=== PATIENT | female | born 1945 | race Caucasian/White ===

== ENCOUNTER → 2017-06-28 | Outpatient (CLI) | payer OTHER ==
[~2017-06-28] MED LIST: ESTR2TAB PO; VENL75TA2 PO
== END ==
LOC: CPRE 11:40
PROVIDERS: ATTEND Orthopaedic Surgery Sports Medicine
DX: M17.12 Unilateral primary osteoarthritis, left knee (principal)

== ENCOUNTER 2017-07-12 06:54 | Inpatient (IN) | payer OTHER, MEDICARE ==
[~2017-07-12] VITALS: Ht 165.1 cm; Wt 75.4 kg
[2017-07-12] MEDS ORDERED: HYDR-3288 PO (07:11)
[2017-07-12] MEDS ORDERED: ASPI81CH6 CHEW (07:11)
[2017-07-12] MEDS ORDERED: ONDANSETRON HCL 4 MG/2 ML VIAL IVP PRN (07:15)
[2017-07-12] MEDS ORDERED: ACETAMINOPHEN/HYDROcodone 325 MG/7.5 MG TAB PO PRN (07:15)
[2017-07-12] MEDS ORDERED: ZOLPIDEM TARTRATE 5 MG TAB PO PRN (07:15)
[2017-07-12] MEDS ORDERED: BISACODYL 10 MG SUPP RECTAL PRN (07:15)
[2017-07-12] MEDS ORDERED: diphenhydrAMINE HCL 50 MG/ML VIAL IV PUSH PRN (07:15)
[2017-07-12] MEDS ORDERED: MORPHINE SULFATE 4 MG/ML INJ IV PUSH PRN (07:15)
[2017-07-12] MEDS ORDERED: POVIDONE IODINE 5% (ANTISEPSIS KIT) 4 APPLICATIONS EACH NARE PRN (08:00)
[2017-07-12] MEDS ORDERED: SODIUM CHLORID 0.9% 500 ML IV PRN (08:00)
[2017-07-12] MEDS ORDERED: LACTATED RINGER'S 1000 ML IV PRN (08:00)
[2017-07-12] MEDS ORDERED: CHLORHEXIDINE GLUCONATE 2 % 1 PACK (2 CLOTHS) TOPICAL PRN (08:00)
[2017-07-12] MEDS ORDERED: METOPROLOL TARTRATE 25 MG TAB PO PRN (08:00)
[2017-07-12] MEDS ORDERED: TRAM50TA PO (08:13)
[2017-07-12] MEDS ORDERED: CHLORHEXIDINE GLUCONATE 4% SOLN 120 ML BTL TOPICAL SCH (08:15)
[2017-07-12] MEDS ORDERED: VANCOMYCIN 1 GM/200 ML INJ 200 ML IV SCH (08:15)
[2017-07-12] MEDS ORDERED: POVIDONE IODINE 7.5% SCRUB 118 ML BOTTLE TOPICAL SCH (08:15)
[2017-07-12] MEDS ORDERED: ceFAZolin 2 GM PREMIX 50 ML IV SCH (08:15)
[2017-07-12 08:27] VITALS: PULSE 80
[2017-07-12] MEDS ORDERED: MIDAZOLAM HCL 2 MG/2 ML VIAL ONE (08:41)
[2017-07-12] MEDS ORDERED: BUPIVACAINE LIPOSOME PF 1.3% 20 ML VIAL ONE (08:42)
[2017-07-12] MEDS ORDERED: LIDOCAINE HCL 1% PF 5 ML AMPULE ONE (08:42)
[2017-07-12] MEDS ORDERED: SODIUM CHLORIDE 0.9% IV SCH (09:00)
[2017-07-12] MEDS ORDERED: TRANEXAMIC ACID IV SCH (09:00)
[2017-07-12] MEDS ORDERED: ROPIVACAINE PERI-ARTICULAR INJECTION. P-ARTICULR SCH ×5 (09:00)
[2017-07-12] MEDS: ESTRADIOL 1 MG TAB PO SCH (09:00)
[2017-07-12] MEDS ORDERED: DEXAMETHASONE SOD PHOS 20 MG/5 ML VIAL IV SCH (09:00)
[2017-07-12] MEDS ORDERED: TRANEXAMIC PERI-ARTICULAR 3,000 MG/NS 100 ML P-ARTICULR SCH ×2 (09:00)
[2017-07-12] MEDS: VENLAFAXINE HCL XR 75 MG CAP PO SCH (09:00)
[2017-07-12] MEDS ORDERED: GENTAMICIN SULFATE 80 MG/2 ML VIAL ONE (09:10)
[2017-07-12] MEDS ORDERED: STERILE WATER FOR INJECTION 20 ML VIAL ONE (11:09)
[2017-07-12] MEDS ORDERED: Post-op Orders (for Pharmacy) XX ONE (11:42)
[2017-07-12] MEDS ORDERED: *ONDANSETRON 4 MG VIAL PERIprocedural Use ONLY ONE (11:48)
[2017-07-12] MEDS ORDERED: *MEPERIDINE 25 MG INJ VIAL PERIprocedural Use ONLY ONE (11:53)
[2017-07-12] MEDS ORDERED: PROPOFOL 200 MG/20 ML AMP IV ONE (12:00)
[2017-07-12] MEDS ORDERED: LACTATED RINGER'S 1000 ML INJ 1,000 ML IV ONE (12:00)
[2017-07-12] MEDS ORDERED: GLYCOPYRROLATE 1 MG/5 ML SYRINGE IV PUSH ONE (12:00)
[2017-07-12] MEDS ORDERED: LABETALOL HCL 100 MG/20 ML VIAL IV ONE (12:00)
[2017-07-12] MEDS ORDERED: ONDANSETRON HCL 4 MG/2 ML VIAL IV ONE (12:00)
[2017-07-12] MEDS ORDERED: LIDOCAINE HCL 1% PF 5 ML SYRINGE OTHER ONE (12:00)
[2017-07-12] MEDS ORDERED: NEOSTIGMINE 5 MG/5 ML SYRINGE IV PUSH ONE (12:00)
[2017-07-12] MEDS ORDERED: ROCURONIUM INJ 50 MG/5 ML SYRINGE IV PUSH ONE (12:00)
[2017-07-12] MEDS ORDERED: *morphine SULFATE 4 MG/ML PERIprocedure ONLY ONE ×2 (12:19→13:39)
--- NOTE | 2017-07-12 12:33 | RADRPT ---
EXAM DATE/TIME: 07/12/2017 12:07 [place] COMPARISON: No previous studies available for comparison. INDICATIONS : Post op left knee. MEDICAL HISTORY : None. SURGICAL HISTORY : left knee replaced ENCOUNTER: Initial ACUITY: 1 day PAIN SCORE: 6/10 LOCATION: Left knee FINDINGS: 2 views of the knee show a total knee prosthesis in good position. No fracture or dislocation is obse rved. Air and fluid is noted within the joint. Soft tissue swelling is noted. CONCLUSION: Totally prosthesis in good position. Jonnathan Conklin Jr., MD on July 12, 2017 at 12:31 Board Certified Radiologist. This report was verified electronically.
[2017-07-12] MEDS ORDERED: *morphine SULFATE 10 MG/ML PERIprocedure ONLY ONE (12:38)
[2017-07-12] MEDS ORDERED: DO NOT ADM ANY ANTICOAGULANT DRUGS PRN (12:45)
--- NOTE | 2017-07-12 12:54 | MP ---
cc: Manuel Gamboa MD DATE OF OPERATION: 07/12/2017 PREOPERATIVE DIAGNOSIS: Left knee osteoarthritis. POSTOPERATIVE DIAGNOSIS: Left knee osteoarthritis. PROCEDURE: Left total knee arthroplasty. SURGEON: Manuel Gamboa MD EMAIL DEVELOPER: SATURNINO Lara ANESTHESIA: General with a femoral nerve adductor canal block. ESTIMATED BLOOD LOSS: 100 mL. COMPLICATIONS: None. TOURNIQUET TIME: 22 minutes at 250 mmHg. IMPLANTS USED: DePuy Attune size 5 posterior stabilized femoral component, size 5 rotating platform tibial baseplate, size 5 mm polyethylene tibia insert, size 35 patella. JUSTIFICATION: This patient is a 72-year-old female with a history of severe end-stage osteoarthritis involving the left knee. She has severe disabling pain with standing, walking, ambulation, weight-bearing activities and severe pain at rest. She has failed greater than three months of nonoperative conservative treatment to include medication therapy, injections, ambulatory assistive aids, home exercise program, activity modification, and weight loss. Extensive x-rays of the left knee reveal severe end-stage osteoarthritis with joint space narrowing, subchondral sclerosis, subchondral cyst, osteophyte formation with deformity and subluxation. The patient was counseled as to the risks, benefits and alternatives to a total knee arthroplasty. The risks were discussed which include, not limited to anesthesia, bleeding, infection, damage to nerves, blood vessels, pain, stiffness, failure of the hardware, damage to nerves and blood vessels and even . The patient's pain is severe and she favored the benefits over the risks and did wish to proceed with surgery. PROCEDURE IN DETAIL: Written consent was obtained. The patient was identified by name, taken to the operating room and placed supine on the operating room table. General endotracheal anesthesia was administered as well as 2 grams of IV Ancef and 1 gram of IV vancomycin. She received an ultrasound guided femoral nerve adductor canal block by anesthesia. A well-padded tourniquet was placed on the left thigh and the left lower extremity was then prepped and draped using isopropyl alcohol, Hibiclens solution and ChloraPrep solution. After a time-out was performed, an Esmarch bandage was used to exsanguinate the left lower extremity. The tourniquet was inflated to 250 mmHg. A longitudinal incision was made over the anterior aspect of the left knee. A medial parapatellar arthrotomy was performed. The patella was everted. A patella resection guide was used to resect 9 mm of patella. At this time, a 35 mm guide was placed. Three drill holes were placed, a 35 mm trial fit well. Attention was turned to the femur where an intramedullary guide was placed and the distal femoral guide was set to remove 10 mm of distal femur 5 degrees of the anatomic valgus axis alignment. An oscillating saw was used to perform the distal femoral cut. Attention was turned to the tibia where an extramedullary tibial guide was set to remove 5 mm off the lowest portion of the medial tibial plateau. Tibial guide was pinned in place and the tibia cut was performed. A 5 mm spacer block showed full extension. Attention was turned back to the femur where the AP sizer block measured at size 5. The anterior reference 3 degree external rotation guide was used to pin a size [address] The anterior, posterior and chamfer cuts were performed. A size 5 PCL box cut pinned in place and the PCL was box cut with an oscillating saw. The medial and lateral meniscus remnants were removed, as well as bone and soft tissue debris from the posterior portion of the knee. A size 5 tibia base was pinned in place and the tibia was drilled and punched. Trial component were removed and final components cemented in place. With the current components, the leg could achieve full extension to 0 degrees, flexion to 140 with no evidence of tibial lift off. Varus/valgus balance appeared appropriate and symmetric and the patella was noted to track centrally. With the tourniquet deflated, Bovie cautery was used for hemostasis. The surgical wound was thoroughly irrigated with sterile saline pulse lavage antibiotic impregnated solution. The arthrotomy incision was closed with #1 Vicryl sutures, subcutaneous layer 2-0 Vicryl suture and the skin was closed with Dermabond. Sterile dressings were applied. The patient tolerated the procedure well with no intraoperative complication noted. Cricket Scales, Physical Concrete Float Maker Certified, was present during the entire procedure to include patient positioning, and the procedure itself. The medical necessity of a physician dental assistant was indicated in this case due to the complexity of the procedure. He assisted with appropriate manipulation of the leg and also retraction of muscle, tendon, bone and neurovascular structures. He assisted with preparation of bone and implantation of the internal prosthetic replacement. MD AMADO Pang/GERSON/uzma , 11:29 AM , 12:00 PM
[2017-07-12] MEDS: SODIUM CHLOR 0.9% 1000 ML INJ 1,000 ML IV SCH ×2 (13:18→17:09)
--- NOTE | 2017-07-12 13:49 | HHI.DCPOC ---
Discharge Care Plan Diagnosis: (1) Primary localized osteoarthrosis, lower leg Your Health Problems Are: Difficulty with ADL Goals to Promote Your Health * To prevent worsening of your condition and complications * To maintain your health at the optimal level Directions to Meet Your Goals Take your medications as prescribed Follow your dietary instruction Follow activity as directed Keep your appointments as scheduled Take your immunizations and boosters as scheduled If your symptoms worsen call your PCP, if no PCP go to Urgent Care Center or Emergency Room Smoking is Dangerous to Your Health. Avoid second hand smoke Call the 24-hour hour crisis hotline for domestic abuse at Manuel Scales Jul 12, 2017 13:49
--- NOTE | 2017-07-12 13:50 | HHI.FF ---
Face to Face Verification Diagnosis: (1) Primary localized osteoarthrosis, lower leg Physical Therapy Gait training, Safety evaluation, Transfer training, bed to chair Knee: Total knee, Protocol: Left Left LE Weight Bearing: WB as tolerated Nursing RN: 3 days/week x 2 weeks Nursing: Dressing changes Dressing Changes: Daily dressing change I have seen patient Ana Woodard on 07/12/17. My clinical findings support the need for the requested home health care services because: Limited ability to care for self High risk of falls I certify that my clinical findings support that this patient is homebound because: Post-op weakness Unsteady gait/balance Manuel Scales Jul 12, 2017 13:50
[2017-07-12] MEDS ORDERED: HYDROmorphone HCL PF 2 MG/ML VIAL ONE (14:33)
[2017-07-12] MEDS: ACETAMINOPHEN/HYDROcodone 325 MG/7.5 MG TAB PO PRN ×2 (18:35→23:59)
[2017-07-12 19:20] VITALS: BP 126/60; PULSE 99; RESP 18; TEMP 95.3; O2SAT 93
--- NOTE | 2017-07-12 20:40 | PD.CONS ---
HPI Service [facility] Hospitalists Consult Requested By Orthopedic surgery. Reason for Consult Medical management. Primary Care Physician Franchesca Sousa MD Diagnoses: History of Present Illness Ms. Woodard is a pleasant 72 year old female with history of osteoarthritis who underwent left total knee arthroplasty today. Hospitalist service was consulted for medical management. Patient was seen in PACU. At the time of this interview , patient is working with PT. She has no acute concerns. No chest pain, SOB, fever, chills. Review of Systems Except as stated in HPI: all other systems reviewed are Neg Past Family Social History Allergies: Coded Allergies: No Known Allergies (Unverified , 07/12/17) Past Medical History Depression Osteoarthritis. Past Surgical History Cholecystectomy Reported Medications Venlafaxine 75mg Qday Estradiol 2mg Qday Tramadol 50mg Q6hrs PRN. Family History Father - heart disease. Mother - circulation problems. Social History Used to smoke. However, she does not smoke anymore. Denies using alcohol or illicit drugs. Physical Exam Vital Signs Vital Signs Date Time Temp Pulse Resp B/P (MAP) Pulse Ox O2 Delivery O2 Flow Rate FiO2 07/12/17 19:20 95.3 99 18 126/60 (82) 93 07/12/17 17:00 97.6 100 16 117/57 (77) 100 Nasal Cannula 2 07/12/17 16:00 92 14 139/92 (108) 100 Nasal Cannula 2 07/12/17 15:00 99 15 132/59 (83) 100 Nasal Cannula 2 07/12/17 14:00 100 14 133/60 (84) 100 Nasal Cannula 2 07/12/17 13:30 92 13 148/65 (92) 100 Nasal Cannula 2 07/12/17 13:00 91 12 135/57 (83) 99 Nasal Cannula 2 07/12/17 12:45 86 12 124/58 (80) 95 Nasal Cannula 2 07/12/17 12:30 85 12 105/52 (69) 95 Nasal Cannula 2 07/12/17 12:15 83 14 139/63 (88) 95 Nasal Cannula 2 07/12/17 12:00 81 15 138/65 (89) 97 Nasal Cannula 2 07/12/17 11:45 78 19 131/60 (83) 95 Nasal Cannula 2 07/12/17 11:42 97.6 72 20 129/62 (84) 96 Nasal Cannula 2 07/12/17 09:02 81 16 99 07/12/17 08:31 97.1 94 16 146/68 (94) 99 07/12/17 08:31 100 Nasal Cannula 2 07/12/17 08:27 80 Physical Exam GENERAL: This is a well-nourished, well-developed patient, in no apparent distress. SKIN: No rashes, ecchymoses or lesions. Warm and dry. HEAD: Atraumatic. Normocephalic. No temporal or scalp tenderness. EYES: Pupils equal round and reactive. No injection or drainage. ENT: Nose without bleeding, purulent drainage or septal hematoma. Airway patent. NECK: Trachea midline. No lymphadenopathy. Supple, nontender, no meningeal signs. CARDIOVASCULAR: Regular rhythm, tachycardic without murmurs, gallops, or rubs. No JVD. RESPIRATORY: Clear to auscultation. Breath sounds equal bilaterally. No wheezes , rales, or rhonchi. GASTROINTESTINAL: Abdomen soft, non-tender, nondistended. No guarding. MUSCULOSKELETAL: Extremities without clubbing, cyanosis, or edema. s/p left TKA NEUROLOGICAL: Awake and alert. Cranial nerves II through XII intact. No focal neurological deficits. Normal speech. Imaging Last Impressions Knee X-Ray 07/12/17 0709 Signed Impressions: Service Date/Time: Wednesday, July 12, 2017 12:07 - CONCLUSION: Totally prosthesis in good position. Jonnathan Conklin Jr., MD Assessment and Plan Problem List: (1) Primary localized osteoarthrosis, lower leg ICD Code: M17.10 - Unilateral primary osteoarthritis, unspecified knee Assessment and Plan Ms. Woodard is a pleasant 72 year old with a history of osteoarthritis who underwent left total knee arthroplasty on 07/12/2017. - Left knee osteoarthritis - s/p Left TKA - Continue [place] PRN for pain as well as Morphine IV - Bowel regimen - Lovenox 40mg Qday starting 07/13/2017. - Tachycardia - mild. Likely due to pain. No need to treat at this point. - Depression - Continue Venlafaxine 75mg Qday. Full code. Lovenox starting 07/13/2017. Thank you for the consult. We will follow this patient with you. Mike Call DO Jul 12, 2017 20:40
[2017-07-12 23:00] VITALS: BP 136/71; PULSE 98; RESP 18; TEMP 97.9; O2SAT 94
[2017-07-13] MEDS: SODIUM CHLOR 0.9% 1000 ML INJ 1,000 ML IV SCH (02:55)
[2017-07-13] MEDS: ACETAMINOPHEN/HYDROcodone 325 MG/7.5 MG TAB PO PRN ×3 (04:41→12:25)
[2017-07-13 05:55] VITALS: BP 114/65; PULSE 104; RESP 18; TEMP 98.4; O2SAT 97
[2017-07-13 07:30] VITALS: BP 115/61; PULSE 94; RESP 18; TEMP 97.5; O2SAT 97
--- NOTE | 2017-07-13 08:15 | PD.ORT.PN ---
Subjective Post Op Day #: 1 Subjective Remarks pain tolerable. Objective Vitals Vital Signs Date Time Temp Pulse Resp B/P (MAP) Pulse Ox O2 Delivery O2 Flow Rate FiO2 07/13/17 07:43 Room Air 07/13/17 07:30 97.5 94 18 115/61 (79) 97 07/13/17 05:55 98.4 104 18 114/65 (81) 97 07/12/17 23:00 97.9 98 18 136/71 (92) 94 07/12/17 19:20 95.3 99 18 126/60 (82) 93 07/12/17 17:00 97.6 100 16 117/57 (77) 100 Nasal Cannula 2 07/12/17 16:00 92 14 139/92 (108) 100 Nasal Cannula 2 07/12/17 15:00 99 15 132/59 (83) 100 Nasal Cannula 2 07/12/17 14:00 100 14 133/60 (84) 100 Nasal Cannula 2 07/12/17 13:30 92 13 148/65 (92) 100 Nasal Cannula 2 07/12/17 13:00 91 12 135/57 (83) 99 Nasal Cannula 2 07/12/17 12:45 86 12 124/58 (80) 95 Nasal Cannula 2 07/12/17 12:30 85 12 105/52 (69) 95 Nasal Cannula 2 07/12/17 12:15 83 14 139/63 (88) 95 Nasal Cannula 2 07/12/17 12:00 81 15 138/65 (89) 97 Nasal Cannula 2 07/12/17 11:45 78 19 131/60 (83) 95 Nasal Cannula 2 07/12/17 11:42 97.6 72 20 129/62 (84) 96 Nasal Cannula 2 07/12/17 09:02 81 16 99 07/12/17 08:31 97.1 94 16 146/68 (94) 99 07/12/17 08:31 100 Nasal Cannula 2 07/12/17 08:27 80 I/O 07/12/17 07/12/17 07/12/17 07/13/17 07/13/17 07/13/17 07:00 15:00 23:00 07:00 15:00 23:00 Intake Total 1290 ml 1002 ml 480 ml Output Total 250 ml 500 ml 1000 ml Balance 1040 ml 502 ml -520 ml Intake Oral 40 ml 560 ml 480 ml IV Total 1250 ml 442 ml Output Urine Total 150 ml 500 ml 1000 ml Estimated Blood Loss 100 ml # Bowel Movements 0 0 Objective Remarks in bed, nad dressing c/d/i neg homamaverick nvi Assessment & Plan Ortho Post Op Day #: 1 Problem List: Assessment and Plan s/p L TKA wbat ok to maintain dressing unless saturated lovenox, d/c on asa81 d/c planning home with [facility] and pt - cleared today if does well in PT rx in chart f/up dr. flower 2 weeks Manuel Scales Jul 13, 2017 08:15
[2017-07-13] MEDS: VENLAFAXINE HCL XR 75 MG CAP PO SCH (08:17)
[2017-07-13 08:33] LABS: HEMATOCRIT 30.8 % (35.0-46.0); HEMOGLOBIN 10.2 GM/DL (11.6-15.3); MEAN CELL VOLUME 87.6 FL (80.0-100.0); MEAN CORPUSCULAR HEMOGLOBIN 29.1 PG (27.0-34.0); MEAN CORPUSCULAR HGB CONC 33.2 % (32.0-36.0); MEAN PLATELET VOLUME 7.3 FL (7.0-11.0); PLATELET COUNT 291 TH/MM3 (150-450); RED BLOOD COUNT 3.51 MIL/MM3 (4.00-5.30); RED CELL DISTRIBUTION WIDTH 12.8 % (11.6-17.2); WHITE BLOOD COUNT 12.7 TH/MM3 (4.0-11.0)
[2017-07-13] MEDS: ESTRADIOL 1 MG TAB PO SCH (09:00)
[2017-07-13 09:08] LABS: BICARBONATE 25.1 MEQ/L (21.0-32.0); CALCIUM 7.8 MG/DL (8.5-10.1); CREATININE 0.67 MG/DL (0.50-1.00)
[2017-07-13] MEDS ORDERED: ENOXAPARIN SODIUM 40 MG/0.4 ML SYRINGE SQ SCH (11:00)
[2017-07-13 11:23] VITALS: BP 137/67; PULSE 83; RESP 18; TEMP 97.8; O2SAT 96
[2017-07-13] MEDS ORDERED: DOCUSATE SODIUM 100 MG CAP PO SCH (21:00)
[2017-07-13] MEDS ORDERED: MULTIVITAMINS/MINERALS THERAPEUTIC TAB PO SCH (21:00)
== END 2017-07-13 13:43 | disposition home health service (06) | DRG 470 ==
LOC: HSDC 06:54 → HSDI 07:10 → N06A 17:37
PROVIDERS: ADMIT Orthopaedic Surgery Sports Medicine; ATTEND Orthopaedic Surgery Sports Medicine
PROC: 3E0T3BZ Introduction of Anesthetic Agent into Peripheral Nerves and Plexi, Percutaneous Approach (ICD-10-PCS; 2017-07-12)
PROC: 0SRD0J9 Replacement of Left Knee Joint with Synthetic Substitute, Cemented, Open Approach (ICD-10-PCS; principal; 2017-07-12 09:41)
DX: M17.12 Unilateral primary osteoarthritis, left knee (principal); F32.9 Major depressive disorder, single episode, unspecified; K21.9 Gastro-esophageal reflux disease without esophagitis; Z87.891 Personal history of nicotine dependence
CPT/HCPCS: 73560; 80048; 85027; 86850; 86900; 86901; 94150; C1776; C9290; J0690; J0735; J1100; J1170; J1580; J1650; J1885; J2175; J2250; J2270; J2405; J2710; J2795; J3010; J3370; J7030; J7120; L1830

== ENCOUNTER 2018-01-17 05:30 | Inpatient (IN) ==
[2018-01-17] MEDS ORDERED: Chlorhexidine Gluconate 2% 1 Pack (2 Cloths) TOPICAL ONE (06:02)
[2018-01-17] MEDS ORDERED: Metoprolol Tartrate 25 MG Tablet PO ONE (06:02)
[2018-01-17] MEDS ORDERED: Dexamethasone Inj 20 MG/5 ML Vial IV.PUSH PRN (06:13)
[2018-01-17] MEDS ORDERED: Chlorhexidine 4% Topical 120 APPLIC/120 ML Bottle TOPICAL SCH (06:15)
[2018-01-17] MEDS ORDERED: Sodium Chlor 0.9% Inj 73.07 ML, Ropivacaine 0.5% PF Inj 24.63 ML, Ketorolac Inj 30 MG, ... P-ARTICULR SCH ×5 (06:15)
[2018-01-17] MEDS ORDERED: Bisacodyl 10 MG Supp RECTAL PRN (06:56)
[2018-01-17] MEDS ORDERED: Zolpidem Tartrate 5 MG Tablet PO PRN (06:56)
[2018-01-17] MEDS ORDERED: HYDROmorphone PF Inj 1 MG/ML Ampul IV.PUSH PRN (06:56)
[2018-01-17] MEDS ORDERED: Post-op Orders (for Pharmacy) OTHER STA (06:56)
[2018-01-17] MEDS ORDERED: Sodium Chlor 0.9% Inj 500 ML IV.SIG SCH (07:00)
[2018-01-17] MEDS ORDERED: TRANEXAMIC ACID IV.SIG SCH (07:00)
[2018-01-17] MEDS ORDERED: Vancomycin Inj 1,000 MG in Sodium Chlor 0.9% Inj 250 ML IV.SIG SCH (07:00)
[2018-01-17] MEDS ORDERED: ceFAZolin 2 GM Premix Inj 2 GM/50 ML PIGGYBACK IV.SIG SCH ×2 (07:00)
[2018-01-17] MEDS ORDERED: SODIUM CHLOR 0.9% IV.SIG SCH (07:00)
[2018-01-17] MEDS ORDERED: ceFAZolin 2 GM Premix Inj 2 GM/100 ML BAG IV.SIG SCH (07:00)
[2018-01-17] MEDS ORDERED: Famotidine PF Inj 20 MG/2 ML Vial ONE (07:33)
[2018-01-17] MEDS ORDERED: Senna/Docusate Sodium 8.6/50 MG Tablet PO SCH (09:00)
[2018-01-17] MEDS ORDERED: Venlafaxine XR 75 MG Capsule PO SCH (09:00)
[2018-01-17] MEDS ORDERED: Tolterodine Tartrate LA 2 MG Capsule PO SCH (09:00)
[2018-01-17] MEDS ORDERED: Estradiol 1 MG Tablet PO SCH (09:00)
[2018-01-17] MEDS ORDERED: Multivitamin/Minerals Therapeutic Tablet PO SCH (09:00)
--- NOTE | 2018-01-17 09:10 | P.CONIM ---
History of Present Illness Reason for Consult: post-opmedical management Primary Care Provider: Franchesca Crowder MD Family Provider: Franchesca Crowder MD Chief Complaint: I had a reaction to the antibiotic History of Present Illness: patient is a 72y/o female with history of osteoarthritis who was initially admitted for right knee arthroplasty. while she was receiving IV Vancomycin before the operation she started to have ' a funny feeling' in her lower chest/ upper abdomen with some facial redness. she says that she had some nausea. she didn't have any wheezing or sob. IV Vanco was discontinued.by the time of my evaluation she was resting comfortably with no distress and is almost back to normal.she denies any chest pain, dizziness, sob at this time. Review of Systems All other systems reviewed negative except as stated in HPI PMFSH - History History Provided By: Patient - Medical History Medical History: Medical History (Last Reviewed 01/17/18 @ 09:07 by Isi Martin MD) Anxiety Arthritis GERD (gastroesophageal reflux disease) History of anesthesia reaction History of hysterectomy Joint pain Urinary incontinence Vertigo Wears glasses Wears partial dentures - Surgical History Surgical History: Surgical History (Last Reviewed 01/17/18 @ 09:07 by Isi Martin MD) H/O rotator cuff surgery History of cataract extraction with lens replacement History of cholecystectomy History of left knee replacement History of tonsillectomy - Family History Family History: Family History (Last Updated 01/17/18 @ 09:07 by Isi Martin MD) Other Patient denies medical problems - Tobacco History Second Hand Smoke Exposure: No Smoking Status: Former smoker - Alcohol History How Often Do You Have a Drink Containing Alcohol: Monthly or less - Substance Use History Substance History: No History of Abuse - Travel History Recent Travel in the [place] Within the Last 8 Weeks: No Recent Travel Out of the Country Within the Last 8 Weeks: No Medications and Allergies Active Medications: Active Medications Hydrocodone Bitart/Acetaminophen ([place] 7.5/325) 1 tab PO Q4H PRN PRN Reason: PAIN LESS THAN 5 ON SCALE Hydrocodone Bitart/Acetaminophen (E[place] 7.5/325) 2 tab PO Q6H PRN PRN Reason: PAIN SCALE 5 TO 10 Al Hydroxide/Mg Hydroxide (Milk Of Magnesia Liq) 30 ml PO BID PRN PRN Reason: Mild Constipation Aspirin (Aspirin Chew) 81 mg PO BID [facility] Bisacodyl (Dulcolax Supp) 10 mg RECTAL DAILY PRN PRN Reason: SEVERE CONSITIPATION Chlorhexidine Gluconate (Hibiclens 4% Topical) 1 applicatio TOPICAL ONCE [facility] Stop: 01/21/18 06:14 Last Admin: 01/17/18 07:00 Dose: 1 applicatio Sodium Chloride 73.07 ml/Ropivacaine 24.63 ml/Ketorolac Tromethamine 30 mg/ Epinephrine HCl 0.5 mg/cloNIDine PF Inj 80 mcg 0 ml P-ARTICULR ONCE [facility] Stop: 01/17/18 15:00 Dexamethasone Sodium Phosphate (Decadron Inj) 10 mg IV.PUSH ENGINE INSTALLER PRN PRN Reason: PRE-OP IN OR HOLDING Stop: 01/17/18 22:00 Last Admin: 01/17/18 07:04 Dose: 10 mg Diphenhydramine HCl (Benadryl) 25 mg PO Q6H PRN PRN Reason: ITCHING Estradiol (Estrace) 0.5 mg PO DAILY [facility] Hydromorphone HCl (Dilaudid Pf Inj) 1 mg IV.PUSH Q3H PRN PRN Reason: BREAKTHROUGH PAIN Lactated Ringer's (Lr 1000 Ml Inj) 1,000 mls @ 30 mls/hr IV.SIG .Q24H [facility] Stop: 01/18/18 06:14 Last Admin: 01/17/18 07:00 Dose: 30 mls/hr Sodium Chloride (Ns Inj) 500 mls @ 30 mls/hr IV.SIG .Q10H [facility] Tranexamic Acid 1,130 mg/ (Sodium Chloride) 111.3 mls @ 200 mls/hr IV.SIG ONCE [facility] Stop: 01/17/18 15:00 Tranexamic Acid 3,000 mg/ (Sodium Chloride) 130 mls @ 200 mls/hr P-ARTICULR ONCE [facility] Stop: 01/17/18 16:00 Vancomycin HCl 1,000 mg/ (Sodium Chloride) 250 mls @ 250 mls/hr IV.SIG ENGINE INSTALLER [facility] Stop: 01/20/18 06:15 Last Admin: 01/17/18 07:21 Dose: 250 mls/hr Cefazolin Sodium/Dextrose (Ancef 2 Gm Premix Inj) 2 gm in 50 mls @ 100 mls/hr IV.SIG Q6H [facility] Stop: 01/17/18 19:29 Lactated Ringer's (Lr 1000 Ml Inj) 1,000 mls @ 80 mls/hr IV.CONT .[id number] [facility] Cefazolin/Sodium Chloride (Ancef 2 Gm Premix Inj) 2 gm in 100 mls @ 200 mls/hr IV.SIG ENGINE INSTALLER [facility] Stop: 01/17/18 21:00 Lactulose (Lactulose Liq) 30 ml PO DAILY PRN PRN Reason: SEVERE CONSITIPATION Meclizine HCl (Antivert) 25 mg PO DAILY PRN PRN Reason: Vertigo Multivitamins/Minerals (Theragran-M) 1 tab PO BID [facility] Stop: 03/18/18 08:59 Ondansetron HCl (Zofran Inj) 4 mg IV.PUSH Q6H PRN PRN Reason: NAUSEA OR VOMITING Povidone Iodine (Betadine 7.5% Scrub) 1 applicatio TOPICAL ONCE [facility] Stop: 01/21/18 06:59 Last Admin: 01/17/18 07:19 Dose: Not Given Senna/Docusate Sodium (Savana-Colace) 1 tab PO BID [facility] Sennosides (Senokot) 17.2 mg PO BID PRN PRN Reason: Moderate Constipation Sodium Chloride (Ns Flush) 2 ml IV.FLUSH BID [facility] Sodium Chloride (Ns Flush) 2 ml IV.FLUSH PRN PRN PRN Reason: FLUSH AFTER USING IV ACCESS Tolterodine Tartrate (Detrol La) 2 mg PO DAILY [facility] Venlafaxine HCl (Effexor Xr) 75 mg PO DAILY [facility] Zolpidem Tartrate (Ambien) 5 mg PO HS PRN PRN Reason: INSOMNIA Allergies Allergy/AdvReac Type Severity Reaction Status Date / Time vancomycin Allergy Anaphylaxis Verified 01/17/18 07:32 Home Medications Medication Instructions Recorded Confirmed Type aspirin [Aspirin Low Dose] 81 mg PO DAILY 01/03/18 01/17/18 History estradiol 0.5 mg PO DAILY 01/03/18 01/17/18 History meclizine 25 mg PO DAILY PRN 01/03/18 01/17/18 History meloxicam 7.5 mg PO DAILY 01/03/18 01/17/18 History oxybutynin chloride 5 mg PO DAILY 01/03/18 01/17/18 History venlafaxine 1 tab PO DAILY 01/03/18 01/17/18 History Exam Vital signs: Vital Signs 01/17/18 07:02 01/17/18 07:08 01/17/18 07:36 Temperature 97.2 F L Pulse Rate 74 73 95 H Respiratory Rate 16 Blood Pressure 147/68 H 86/47 L Pulse Oximetry 98 100 91 L 01/17/18 07:44 01/17/18 07:54 01/17/18 07:56 Temperature Pulse Rate 92 H 92 H Respiratory Rate 14 13 Blood Pressure 100/50 L 93/46 L 112/54 L Pulse Oximetry 100 100 01/17/18 08:06 01/17/18 08:47 Temperature Pulse Rate 88 87 Respiratory Rate 14 Blood Pressure 124/67 Pulse Oximetry 100 Intake & Output 01/16/18 01/17/18 01/17/18 18:59 06:59 18:59 Weight 75.5 kg Other: Weight On Admission 75.5 kg - Constitutional no acute distress - Routine Respiratory Exam Present: CTA bilaterally - Routine Cardiovascular Exam Present: RRR - Routine Abdominal Exam Present: soft - Routine Extremities Exam Comments: no pedal edema. - Routine Neurological Exam Present: alert, oriented X3 Results - Labs Labs: Laboratory Results - last 24 hr 01/17/18 07:00 Blood Type O Positive Antibody Screen Negative Assessment and Plan - Plan A/P -allergic reaction to IV Vancomycin received a dose of Decadron and now the symptoms has resolved. continue with Benadryl as needed. -osteoarthritis of the right knee- initial plan for tight TKA- this has been cancelled due to the drug reaction. thank you for the consult. Discussed Condition With: the patient and RN.
[2018-01-17] MEDS ORDERED: Tranexamic Acid Inj 3,000 MG in Sodium Chlor 0.9% Inj 100 ML P-ARTICULR SCH (09:17)
--- NOTE | 2018-01-17 17:26 | ECG ---
Date Performed: 01/17/2018 Time Performed: 07:38:05 PTAGE: 72 years EKG: SINUS TACHYCARDIA ABNORMAL RHYTHM ECG NO PREVIOUS TRACING DOCTOR: Melvin Nielsen Interpretating Date/Time 01/17/2018 17:24:44
--- NOTE | 2018-02-09 10:25 | MD ---
cc: Manuel Gamboa MD DATE OF DISCHARGE: 01/17/2018 ADMITTING DIAGNOSIS: Severe degenerative osteoarthritis, right knee. DISCHARGE DIAGNOSIS: Severe degenerative osteoarthritis, right knee. HISTORY OF PRESENT ILLNESS: Ms. Woodard is a 72-year-old female who is a longstanding patient of Dr. [facility]. Currently, she is being treated for progressive and severe right knee pain. She states the pain is a severe aching sensation aggravated by weightbearing activities. She has no alleviating factors, although she has tried medications, bracing, physical therapy, home exercise program and multiple corticosteroid injections without relief of symptoms. She does have a history of a well-functioning left total knee arthroplasty. The patient has x-ray evidence of severe degenerative osteoarthritis of the right knee. While in the office, the patient was counseled on her diagnosis and treatment options. Risks, benefits, and indications were discussed. The patient did elect to proceed with surgical intervention to include a right total knee arthroplasty. DATE OF SURGERY: 01/24/2018, right total knee arthroplasty. POSTOP: After surgery, the patient was admitted to [facility] where she received appropriate medical management, pain control, DVT prophylaxis, as well as physical therapy. DISCHARGE: Once being discharged from the hospital, patient is cleared to go home where she will receive home health care and home physical therapy. She is in stable condition. She may weight bear as tolerated. She has been instructed on wound care management. She has also been provided prescriptions for pain control and DVT prophylactic medication. The patient has been provided a followup appointment approximately 2 weeks in her of surgery. The patient has been discharged. Dictated by SATURNINO Gatica Manuel Gamboa MD JWM/betito , 12:36 PM , 12:41 PM
== END 2018-01-17 09:39 | disposition home or self-care (01) ==
LOC: HSDI 05:30
PROVIDERS: ADMIT Orthopaedic Surgery Sports Medicine; ATTEND Orthopaedic Surgery Sports Medicine

== ENCOUNTER 2018-01-24 07:03 | Inpatient (IN) ==
[2018-01-24] MEDS ORDERED: fentaNYL Citrate Inj 100 MCG/2 ML Ampul ONE ×2 (08:06→15:00)
[2018-01-24] MEDS ORDERED: Dexamethasone Inj 20 MG/5 ML Vial ONE (08:07)
[2018-01-24] MEDS ORDERED: ceFAZolin 2 GM Premix Inj 2 GM/100 ML BAG IV.SIG ONE (08:07)
[2018-01-24] MEDS ORDERED: Dexamethasone Inj 20 MG/5 ML Vial IV.PUSH ONE (08:17)
[2018-01-24] MEDS ORDERED: Chlorhexidine Gluconate 2% 1 Pack (2 Cloths) TOPICAL ONE (08:28)
[2018-01-24] MEDS ORDERED: Metoprolol Tartrate 25 MG Tablet PO ONE (08:28)
[2018-01-24] MEDS ORDERED: Sodium Chlor 0.9% Inj 73.07 ML, Ropivacaine 0.5% PF Inj 24.63 ML, Ketorolac Inj 30 MG, ... P-ARTICULR SCH ×5 (08:30)
[2018-01-24] MEDS ORDERED: Chlorhexidine 4% Topical 120 APPLIC/120 ML Bottle TOPICAL SCH (08:30)
[2018-01-24] MEDS ORDERED: fentaNYL Citrate Inj 100 MCG/2 ML Ampul IV.PUSH ONE (08:45)
[2018-01-24] MEDS ORDERED: HYDROmorphone PF Inj 1 MG/ML Ampul IV.PUSH PRN (08:56)
[2018-01-24] MEDS ORDERED: Zolpidem Tartrate 5 MG Tablet PO PRN (08:56)
[2018-01-24] MEDS ORDERED: SODIUM CHLOR 0.9% IV.SIG SCH (09:00)
[2018-01-24] MEDS ORDERED: Tranexamic Acid Inj 3,000 MG in Sodium Chlor 0.9% Inj 100 ML IV.SIG SCH (09:00)
[2018-01-24] MEDS ORDERED: TRANEXAMIC ACID IV.SIG SCH (09:00)
[2018-01-24] MEDS ORDERED: ceFAZolin 2 GM Premix Inj 2 GM/50 ML PIGGYBACK IV.SIG SCH (09:00)
[2018-01-24] MEDS ORDERED: Tranexamic Acid Inj 3,000 MG in Sodium Chlor 0.9% Inj 100 ML P-ARTICULR SCH (09:00)
[2018-01-24] MEDS ORDERED: Sodium Chlor 0.9% Inj 500 ML IV.SIG SCH (09:00)
[2018-01-24] MEDS ORDERED: Lidocaine PF 1% Inj 5 ML Syringe INFILTRATN ONE (10:00)
[2018-01-24] MEDS ORDERED: Neostigmine Inj 5 MG/5 ML Syringe IV.PUSH ONE (10:00)
[2018-01-24] MEDS ORDERED: Glycopyrrolate Inj 1 MG/5 ML Syringe IV.PUSH ONE (10:00)
[2018-01-24] MEDS ORDERED: Post-op Orders (for Pharmacy) OTHER STA (12:09)
[2018-01-24] MEDS ORDERED: *morphine SULFATE 4 MG/ML PERIprocedure ONLY ONE ×3 (12:18→12:44)
--- NOTE | 2018-01-24 12:54 | MP ---
cc: Manuel Gamboa MD DATE OF OPERATION: 01/24/2018 PREOPERATIVE DIAGNOSIS: Right knee osteoarthritis. POSTOPERATIVE DIAGNOSIS: Right knee osteoarthritis. PROCEDURE PERFORMED: Right total knee arthroplasty. SURGEON: Manuel Gambao MD [place] CONSULTANT: SATURNINO Danielson ANESTHESIA: General with femoral nerve block. ESTIMATED BLOOD LOSS: 100 mL. TOURNIQUET TIME: 27 minutes at 250 mmHg. COMPLICATIONS: None. IMPLANTS USED: DePuy Attune size 5 posterior stabilized femoral component, size 4 rotating platform tibial baseplate, size 5 mm polyethylene tibial insert, size 35 patella. JUSTIFICATION: This patient is a 72-year-old female with a history of severe osteoarthritis involving the right knee joint. She has severe disabling pain with standing, walking, ambulation, weightbearing activities and severe pain at rest. She has failed greater than 3 months of nonoperative conservative treatment to include medication therapy, injections, ambulatory assist aids, home exercise program and activity modification. The patient is not overweight. X-rays of the right knee reveal severe osteoarthritis, oral-tg-ygwy joint space narrowing, subchondral sclerosis, subchondral cysts, osteophyte formation with deformity and subluxation. The patient was counseled on the risks, benefits and alternatives to a total knee arthroplasty. The risks were discussed, which included but were not limited to anesthesia, bleeding, infection, damage to nerves or blood vessels, pain, stiffness, failure of components, blood clots, pulmonary embolism and even . The patient's pain is severe. She favored the benefits over the risks and she did wish to proceed with surgery. PROCEDURE IN DETAIL: Written consent was obtained. The patient was identified by name, taken to the operating room and placed supine on the operating table. General anesthesia was administered as well as 2 grams of IV Ancef. SHE HAS A VANCOMYCIN ALLERGY. A well-padded tourniquet was placed on the right thigh. The right lower extremity was prepped and draped using isopropyl alcohol, Hibiclens solution and ChloraPrep solution. After a timeout was performed, an Esmarch bandage was used to exsanguinate the right lower extremity and tourniquet inflated to 250 mmHg. A longitudinal incision was made over the anterior aspect of the right knee. A medial parapatellar arthrotomy was performed. The patella was everted. A patellar resection guide was used to resect 7 mm of patella. A size 35 mm guide was placed. Three drill holes were placed and the 35 mm trial which fit well. Attention was turned to the femur. An intramedullary guide was placed and the distal femoral guide was set to remove 10 mm of distal femur and 5 degrees off the anatomic valgus axis alignment. An oscillating saw was used to perform the distal femoral cut. Attention was turned to the tibia where an extramedullary tibial guide was set to remove 5 mm off the lowest portion of the medial tibial plateau. A tibial guide was pinned in place and tibial cut was performed. A 5 mm spacer block showed full extension. Attention was turned back to the femur. The AP sizing block measured a size 5. The anterior reference 3-degree external rotation guide was used to pin a size [address] The anterior, posterior and chamfer cuts were performed. A size 5 PCL block was pinned into place and the PCL was box cut with an oscillating saw. The medial and lateral meniscal remnants were removed, as well as bone and soft tissue debris from the posterior portion of the knee. A size 4 tibial base was pinned in place and the tibia was drilled and punched. Trial components were evaluated and the final components cemented into place. With the current components, the leg could to achieve full extension to 0 degrees and flexion to 140. No evidence of tibial liftoff. Varus valgus balance appeared appropriate and symmetric and the patella was noted to track centrally. Tourniquet was deflated. Bovie cautery was used for hemostasis. The surgical wound was thoroughly irrigated with sterile saline and pulse lavaged with antibiotic impregnated solution. The arthrotomy incision was closed with #1 Vicryl suture, subcutaneous layer with 2-0 Vicryl suture and the skin was closed with Dermabond. Sterile dressing was applied. The patient tolerated the procedure well with no intraoperative complications noted. Cricket Scales, physician recreation assistant, certified, was present during the entire procedure to include patient positioning and the procedure itself. The medical necessity of a physician recreation assistant was indicated in this case due to the complexity of the procedure. He assisted with appropriate manipulation of the leg as well as retraction of muscle, tendon, bone and neurovascular structures. He assisted with preparation of bone and also implantation of the prosthetic replacement. MD AMADO Pang/francy , 11:58 AM , 12:07 PM
--- NOTE | 2018-01-24 13:01 | XR ---
EXAM DATE: 01/24/2018 12:54 PM EDT AGE/SEX: 72 years / Female INDICATIONS: Post-op right knee. CLINICAL DATA: This is the patient's initial encounter. Patient reports that signs and symptoms have been present for 1 day and indicates a pain score of 0/10. MEDICAL/SURGICAL HISTORY: None. Total knee replacement, right. COMPARISON: POI, XR KNEE COMPLETE, RIGHT, 07/02/2014. . FINDINGS: The patient is status post right total knee arthroplasty with prosthesis in good position. There is n o acute fracture or dislocation. CONCLUSION: 1. Status post right total knee arthroplasty. 2. No acute fracture or dislocation. Electronically signed by: Anshul Byers MD 01/24/2018 1:00 PM EDT
[2018-01-24] MEDS: ceFAZolin 2 GM Premix Inj 2 GM/50 ML PIGGYBACK IV.SIG SCH ×2 (14:38→21:01)
--- NOTE | 2018-01-24 16:39 | P.CONIM ---
History of Present Illness Primary Care Provider: Franchesca Crowder MD Family Provider: Franchesca Crowder MD History of Present Illness: Mrs. Woodard is a 72 year old female. She has a pertenant past medical history of GERD related to a hiatal and General Anxiety. She also has a past history of a drug reaction to anesthesia which was prominently nausea and vomiting. Recently she has had an anaphylactic reaction to vancomycin. I am seeing her today, status post right knee surgery, consulted for post op medical management. Pain is controlled when seen. No anesthesia reaction noted, patient feels well. Review of Systems Constitutional: No fevers, no chills no night sweats, no fatigue, no weakness Eyes: No eye pain, no blurry vision, no loss of vision ENT: No sore throat, no ear pain, no rhinorrhea Cardiovascular: No chest pain, no tachycardia, no palpitations, no shortness of breath, no syncope Respiratory: No wheezing, no cough, no shortness of breath Gastrointestinal: No abdominal pain, no black tarry stools, no bright red blood per rectum, no vomiting, no diarrhea Musculoskeletal: joint pain, no muscle cramps, no stiffness Integumentary: No rash, no ulcers, no drainage Neurologic: No sensory loss, no loss of motor function, no dizziness Psychiatric: No behavioral changes, no hallucinations, no suicidal ideations [facility] - History History Provided By: Patient - Medical History Medical History: Medical History (Last Updated 01/20/18 @ 15:19 by Gisel Sánchez RN) Anxiety Arthritis GERD (gastroesophageal reflux disease) Hiatal hernia History of anesthesia reaction History of hysterectomy Joint pain Urinary incontinence Vertigo Wears glasses Wears hearing aid in both ears Wears partial dentures - Surgical History Surgical History: Surgical History (Last Updated 01/20/18 @ 15:18 by Gisel Sánchez RN) H/O rotator cuff surgery History of cataract extraction with lens replacement History of cholecystectomy History of left knee replacement History of tonsillectomy Hx of arthroscopy of right knee - Family History Family History: Family History (Last Updated 01/17/18 @ 09:07 by Isi Martin MD) Other Patient denies medical problems - Tobacco History Second Hand Smoke Exposure: No Smoking Status: Former smoker - Alcohol History How Often Do You Have a Drink Containing Alcohol: 2 to 3 times a week - Substance Use History Substance History: No History of Abuse - Travel History Recent Travel in the [place] Within the Last 8 Weeks: No Recent Travel Out of the Country Within the Last 8 Weeks: No - Immunization History Tetanus Immunization: Unable to Assess Hx Influenza Vaccine This Season: No Medications and Allergies Active Medications: Active Medications Hydrocodone Bitart/Acetaminophen ([place]bl[place] 7.5/325) 1 tab PO Q4H PRN PRN Reason: PAIN LESS THAN 5 ON SCALE Hydrocodone Bitart/Acetaminophen ([place]bl[place] 7.5/325) 2 tab PO Q6H PRN PRN Reason: PAIN SCALE 5 TO 10 Al Hydroxide/Mg Hydroxide (Milk Of Magnmelvin Liq) 30 ml PO BID PRN PRN Reason: Mild Constipation Aspirin (Aspirin Chew) 81 mg PO BID [facility] Chlorhexidine Gluconate (Hibiclens 4% Topical) 1 applicatio TOPICAL ONCE [facility] Stop: 01/28/18 08:29 Sodium Chloride 73.07 ml/Ropivacaine 24.63 ml/Ketorolac Tromethamine 30 mg/ Epinephrine HCl 0.5 mg/cloNIDine PF Inj 80 mcg 0 ml P-ARTICULR ONCE [facility] Diphenhydramine HCl (Benadryl) 25 mg PO Q6H PRN PRN Reason: ITCHING Estradiol (Estrace) 0.5 mg PO DAILY [facility] Hydromorphone HCl (Dilaudid Pf Inj) 1 mg IV.PUSH Q3H PRN PRN Reason: BREAKTHROUGH PAIN Tranexamic Acid 1,119 mg/ (Sodium Chloride) 111.19 mls @ 200 mls/hr IV.SIG ONCE [facility] Stop: 01/25/18 08:59 Last Infusion: 01/24/18 11:00 Dose: Infused Tranexamic Acid 3,000 mg/ (Sodium Chloride) 130 mls @ 200 mls/hr P-ARTICULR ONCE [facility] Stop: 01/25/18 08:59 Lactated Ringer's (Lr 1000 Ml Inj) 1,000 mls @ 80 mls/hr IV.CONT .[id number] [facility] Last Infusion: 01/24/18 15:14 Dose: 80 mls/hr Cefazolin Sodium/Dextrose (Ancef 2 Gm Premix Inj) 2 gm in 50 mls @ 100 mls/hr IV.SIG Q6H [facility] Stop: 01/25/18 03:29 Last Infusion: 01/24/18 15:14 Dose: Infused Lactulose (Lactulose Liq) 30 ml PO DAILY PRN PRN Reason: SEVERE CONSITIPATION Meclizine HCl (Antivert) 25 mg PO DAILY PRN PRN Reason: SEE LABEL COMMENTS Miscellaneous (Pill Splitter) 1 each OTHER DAILY [facility] Miscellaneous Information ([facility] Nursing Information) 1 each OTHER UNSCH PRN PRN Reason: SEE LABEL COMMENTS Stop: 01/25/18 12:08 Multivitamins/Minerals (Theragran-M) 1 tab PO BID [facility] Stop: 03/25/18 08:59 Ondansetron HCl (Zofran Inj) 4 mg IV.PUSH Q6H PRN PRN Reason: NAUSEA OR VOMITING Oxybutynin Chloride (Ditropan) 5 mg PO DAILY [facility] Povidone Iodine (Betadine 7.5% Scrub) 1 applicatio TOPICAL ONCE [facility] Stop: 01/28/18 08:59 Senna/Docusate Sodium (Savana-Colace) 1 tab PO BID [facility] Sodium Chloride (Ns Flush) 2 ml IV.FLUSH PRN PRN PRN Reason: FLUSH AFTER USING IV ACCESS Sodium Chloride (Ns Flush) 2 ml IV.FLUSH BID [facility] Venlafaxine HCl (Effexor Xr) 75 mg PO DAILY [facility] Zolpidem Tartrate (Ambien) 5 mg PO HS PRN PRN Reason: INSOMNIA Allergies Allergy/AdvReac Type Severity Reaction Status Date / Time vancomycin Allergy Severe Anaphylaxis Verified 01/20/18 15:04 Home Medications Medication Instructions Recorded Confirmed Type aspirin [Aspirin Low Dose] 81 mg PO DAILY 01/03/18 01/24/18 History estradiol 0.5 mg PO DAILY 01/03/18 01/24/18 History meclizine 25 mg PO DAILY PRN 01/03/18 01/24/18 History oxybutynin chloride 5 mg PO DAILY 01/03/18 01/24/18 History venlafaxine 1 tab PO DAILY 01/03/18 01/24/18 History Exam Vital signs: Vital Signs 01/24/18 08:08 01/24/18 09:20 01/24/18 12:08 Temperature 97.8 F 97.9 F Pulse Rate 99 H 83 Respiratory Rate 16 20 Blood Pressure 167/74 H 138/71 Pulse Oximetry 98 99 98 01/24/18 12:15 01/24/18 12:30 01/24/18 12:45 Temperature Pulse Rate 79 84 82 Respiratory Rate 14 13 13 Blood Pressure 132/63 136/62 133/63 Pulse Oximetry 98 99 99 01/24/18 13:00 01/24/18 14:00 01/24/18 15:39 Temperature 97.4 F L Pulse Rate 90 98 H 101 H Respiratory Rate 14 14 18 Blood Pressure 143/59 H 123/58 L 124/60 Pulse Oximetry 99 99 94 L Intake & Output 01/23/18 01/24/18 01/24/18 18:59 06:59 18:59 Intake Total 1403.19 / 1403.19 Output Total 200 / 200 Balance 1203.19 / 1203.19 Weight 91.3 kg Intake: IV 1363.19 / 1363.19 LR 1000 mL Inj 1,000 ML @ 80 152 / 152 mls/hr IV.CONT .[id number] [facility] Rx# :[id number] LR 1000 mL Inj 1,000 ML @ 30 1000 / 1000 mls/hr IV.SIG .Q24H [facility] Rx#: [id number] Cyklokapron Inj 1,119 MG In NS 111.19 / 111.19 Inj 100 ML @ 200 mls/hr IV.SIG ONCE [facility] Rx#:[id number] Ancef 2 GM Premix Inj 2 gm In 100 / 100 50 ml @ 100 mls/hr IV.SIG Q6H [facility] Rx#:[id number] Anesthesia Amount 40 / 40 Output: Estimated Blood Loss 200 / 200 Other: Weight On Admission 74.6 kg Narrative: GENERAL: NAD, A&Ox3 HEAD: Normocephalic. NECK: Supple, trachea midline. No lymphadenopathy. EYES: No scleral icterus. No injection or drainage. CARDIOVASCULAR: Regular rate and rhythm without murmurs, gallops, or rubs. RESPIRATORY: Breath sounds equal bilaterally. No accessory muscle use. GASTROINTESTINAL: Abdomen soft, non-tender, nondistended. MUSCULOSKELETAL: No cyanosis, or edema. Right knee is bandaged/dressed. SKIN: Warm and dry. NEURO: No focal neurological deficits. Results - Labs Labs: Laboratory Results - last 24 hr 01/24/18 08:00 Blood Type O Positive Blood Type Recheck Not needed Antibody Screen Negative - Imaging Impressions Knee X-Ray 01/24/18 08:55 CONCLUSION: 1. Status post right total knee arthroplasty. 2. No acute fracture or dislocation. Assessment and Plan - Plan 72-year-old female admitted secondary to elective right knee surgery Status post right knee surgery Orthopedic surgeons following Continue pain treatments Monitor CBC in a.m. Physical therapy per orthopedic recommendations History of anesthesia reaction (hyperemesis) History of anaphylaxis allergy to vancomycin Follow clinically for now No signs of reaction today Avoid vancomycin As needed Zofran History of gastroesophageal reflux disease Hiatal hernia As needed ranitidine General anxiety disorder No exacerbation Patient is not on active treatments for this DVT prophylaxis Selection deferred to orthopedic surgeons, postop
[2018-01-24] MEDS: Multivitamin/Minerals Therapeutic Tablet PO SCH ×2 (16:50→21:00)
[2018-01-24] MEDS: Senna/Docusate Sodium 8.6/50 MG Tablet PO SCH ×2 (16:50→21:00)
[2018-01-24] MEDS: Venlafaxine XR 75 MG Capsule PO SCH (16:50)
[2018-01-24] MEDS ORDERED: Famotidine 20 MG Tablet PO PRN (17:30)
[2018-01-25] MEDS: ceFAZolin 2 GM Premix Inj 2 GM/50 ML PIGGYBACK IV.SIG SCH (02:47)
[2018-01-25 07:02] LABS: Baso % (Auto) 0.2 % (0.0-2.0); Hematocrit 31.1 % (35.0-46.0); Hemoglobin 10.3 gm/dL (11.6-15.3); Lymph # (Auto) 1.6 th/mm3 (1.0-4.8); Lymph % (Auto) 12.2 % (9.0-44.0); Mean Corpuscular HGB Conc 33.2 % (32.0-36.0); Mean Corpuscular Hemoglobin 29.3 pg (27.0-34.0); Mean Corpuscular Volume 88.2 fL (80.0-100.0); Mean Platelet Volume 7.8 fL (7.0-11.0); Mono # (Auto) 0.8 th/mm3 (0.0-0.9); Mono % (Auto) 6.5 % (0.0-8.0); Neut # (Auto) 10.5 th/mm3 (1.8-7.7); Neut % (Auto) 81.1 % (16.0-70.0); Platelet Count 280 th/mm3 (150-450); Red Blood Count 3.52 mil/mm3 (4.00-5.30); Red Cell Distribution Width 13.9 % (11.6-17.2); White Blood Count 12.9 th/mm3 (4.0-11.0)
[2018-01-25 07:38] LABS: Chloride 109 meq/L (98-107); Glucose,Random 111 mg/dL (74-106); Potassium 4.2 meq/L (3.5-5.1); Sodium 143 meq/L (136-145)
[2018-01-25 07:44] LABS: Alanine Aminotransferase 18 U/L (10-53); Albumin 2.6 g/dL (3.4-5.0); Alkaline Phosphatase 76 U/L (45-117); Anion Gap 8 meq/L (5-15); Aspartate Aminotransferase 12 U/L (15-37); Blood Urea Nitrogen 13 mg/dL (7-18); Calcium 7.9 mg/dL (8.5-10.1); Carbon Dioxide 26.1 meq/L (21.0-32.0); Glomerular Filtration Rate 88 mL/min (>89); Total Protein 5.7 g/dL (6.4-8.2)
--- NOTE | 2018-01-25 08:08 | P.PNOP ---
Subjective Interval history: doing well, pain controlled. Physical Exam Vital signs: Vital Signs 01/24/18 08:08 01/24/18 09:20 01/24/18 12:08 Temperature 97.8 F 97.9 F Pulse Rate 99 H 83 Respiratory Rate 16 20 Blood Pressure 167/74 H 138/71 Pulse Oximetry 98 99 98 01/24/18 12:15 01/24/18 12:30 01/24/18 12:45 Temperature Pulse Rate 79 84 82 Respiratory Rate 14 13 13 Blood Pressure 132/63 136/62 133/63 Pulse Oximetry 98 99 99 01/24/18 13:00 01/24/18 14:00 01/24/18 15:00 Temperature 97.9 F Pulse Rate 90 98 H 97 H Respiratory Rate 14 14 14 Blood Pressure 143/59 H 123/58 L 130/61 Pulse Oximetry 99 99 01/24/18 15:39 01/24/18 20:00 01/25/18 00:00 Temperature 97.4 F L 97.6 F 97.7 F Pulse Rate 101 H 95 H 83 Respiratory Rate 18 18 17 Blood Pressure 124/60 122/61 135/63 Pulse Oximetry 94 L 98 97 01/25/18 04:00 Temperature 97.6 F Pulse Rate 68 Respiratory Rate 17 Blood Pressure 107/54 L Pulse Oximetry 95 Intake & Output 01/24/18 01/25/18 01/25/18 18:59 06:59 18:59 Intake Total 1773.19 / 1773.19 948 / 948 Output Total 200 / 200 Balance 1573.19 / 1573.19 948 / 948 Weight 91.3 kg Intake: IV 1493.19 / 1493.19 948 / 948 LR 1000 mL Inj 1,000 ML @ 80 152 / 152 848 / 848 mls/hr IV.CONT .[id number] [facility] Rx# :[id number] LR 1000 mL Inj 1,000 ML @ 30 1000 / 1000 mls/hr IV.SIG .Q24H [facility] Rx#: [id number] Cyklokapron Inj 1,119 MG In NS 111.19 / 111.19 Inj 100 ML @ 200 mls/hr IV.SIG ONCE [facility] Rx#:[id number] Ancef 2 GM Premix Inj 2 gm In 100 / 100 100 / 100 50 ml @ 100 mls/hr IV.SIG Q6H [facility] Rx#:[id number] Oral 240 / 240 Anesthesia Amount 40 / 40 Output: Urine 0 / 0 Estimated Blood Loss 200 / 200 Other: # Voids 7 Date of Last Bowel Movement 01/24/18 Weight On Admission 74.6 kg Narrative: in bed, nad dressing c/d/i neg idalia nvi Results - Labs CBC & Chem 7: 01/25/18 05:55 01/25/18 05:55 Laboratory Results - last 24 hr 01/24/18 01/25/18 01/25/18 08:00 05:55 05:55 WBC 12.9 H RBC 3.52 L Hgb 10.3 L Hct 31.1 L MCV 88.2 MCH 29.3 MCHC 33.2 RDW 13.9 Plt Count 280 MPV 7.8 Neut % (Auto) 81.1 H Lymph % (Auto) 12.2 [place] % (Auto) 6.5 Eos % (Auto) 0.0 Baso % (Auto) 0.2 Neut # (Auto) 10.5 H Lymph # (Auto) 1.6 [place] # (Auto) 0.8 Eos # (Auto) 0.0 Baso # (Auto) 0.0 WBC Differential . Differential Comment Auto diff final Sodium 143 Potassium 4.2 Chloride 109 H Carbon Dioxide 26.1 Anion Gap 8 BUN 13 Creatinine 0.66 Estimated GFR 88 L Random Glucose 111 H Calcium 7.9 L Total Bilirubin 0.2 AST 12 L ALT 18 Alkaline Phosphatase 76 Total Protein 5.7 L Albumin 2.6 L Blood Type O Positive Blood Type Recheck Not needed Antibody Screen Negative - Imaging Impressions Knee X-Ray 01/24/18 08:55 CONCLUSION: 1. Status post right total knee arthroplasty. 2. No acute fracture or dislocation. Assessment and Plan - Ortho Post Op Day # 1 - Assessment and Plan s/p R TKA wbat ok to maintain dressing unless saturated asa 81 d/c planning home with hhc and pt - cleared today if does well in PT f/up dr. flower 2 weeks
--- NOTE | 2018-01-25 08:09 | P.DCO ---
- Physical Therapy Physical Therapy: Gait training, Safety evaluation Knee: Total knee, Protocol: Right, Full weight bearing Right Lower Extremity Weight Bearing: Weight bearing as tolerated - Nursing RN: 3 days/week x 2 weeks Nursing: Dressing changes - Certification Need for Home Health services: I have seen patient Ana Woodard on 01/25/18. My clinical findings support the need for the requested home health care services because: Need for Home Health Services: Limited ability to care for self, High risk of falls Homebound Certification: I certify that my clinical findings support that this patient is homebound because: Homebound Certification: Post-op weakness, Unsteady gait/balance
[2018-01-25] MEDS: Venlafaxine XR 75 MG Capsule PO SCH (08:55)
[2018-01-25] MEDS: Senna/Docusate Sodium 8.6/50 MG Tablet PO SCH (08:55)
[2018-01-25] MEDS: Multivitamin/Minerals Therapeutic Tablet PO SCH (08:55)
[2018-01-25] MEDS ORDERED: Estradiol 1 MG Tablet PO SCH (09:00)
[2018-01-25 09:33] VITALS: BP 111/54; PULSE 71; RESP 18; TEMP 97.3; O2SAT 98
--- NOTE | 2018-01-25 11:07 | P.PNIM ---
Subjective Interval history: Pt seen and examined. POD s/p R TKR. Pain is well controlled and she is being discharged per orthopedic surgery. She feels ready to go home. Denies chest pain, shortness of breath, abdominal pain, nausea, vomiting. Tolerating PO. + flatus. Physical Exam Vital signs: Vital Signs 01/24/18 12:08 01/24/18 12:15 01/24/18 12:30 Temperature 97.9 F Pulse Rate 83 79 84 Respiratory Rate 20 14 13 Blood Pressure 138/71 132/63 136/62 Pulse Oximetry 98 98 99 01/24/18 12:45 01/24/18 13:00 01/24/18 14:00 Temperature Pulse Rate 82 90 98 H Respiratory Rate 13 14 14 Blood Pressure 133/63 143/59 H 123/58 L Pulse Oximetry 99 99 99 01/24/18 15:00 01/24/18 15:39 01/24/18 20:00 Temperature 97.9 F 97.4 F L 97.6 F Pulse Rate 97 H 101 H 95 H Respiratory Rate 14 18 18 Blood Pressure 130/61 124/60 122/61 Pulse Oximetry 94 L 98 01/25/18 00:00 01/25/18 04:00 01/25/18 08:00 Temperature 97.7 F 97.6 F 97.3 F L Pulse Rate 83 68 71 Respiratory Rate 17 17 18 Blood Pressure 135/63 107/54 L 111/54 L Pulse Oximetry 97 95 98 Intake & Output 01/24/18 01/25/18 01/25/18 18:59 06:59 18:59 Intake Total 1773.19 / 1773.19 948 / 948 Output Total 200 / 200 Balance 1573.19 / 1573.19 948 / 948 Weight 91.3 kg Intake: IV 1493.19 / 1493.19 948 / 948 LR 1000 mL Inj 1,000 ML @ 80 152 / 152 848 / 848 mls/hr IV.CONT .[id number] [facility] Rx# :[id number] LR 1000 mL Inj 1,000 ML @ 30 1000 / 1000 mls/hr IV.SIG .Q24H [facility] Rx#: [id number] Cyklokapron Inj 1,119 MG In NS 111.19 / 111.19 Inj 100 ML @ 200 mls/hr IV.SIG ONCE [facility] Rx#:[id number] Ancef 2 GM Premix Inj 2 gm In 100 / 100 100 / 100 50 ml @ 100 mls/hr IV.SIG Q6H [facility] Rx#:[id number] Oral 240 / 240 Anesthesia Amount 40 / 40 Output: Urine 0 / 0 Estimated Blood Loss 200 / 200 Other: # Voids 7 Date of Last Bowel Movement 01/24/18 01/24/18 Weight On Admission 74.6 kg Narrative: GENERAL: WN, WD pleasant female sitting up in bed in NAD. SKIN: Warm and dry. HEART: RRR no m/r/g. LUNGS: CTAB without wheezes or crackles. ABDOMEN: +BS, soft, NT, ND. EXTREMITIES: R knee dressing C/D/I. NVI. NEURO: Awake and alert. PSYCH: Appropriate mood and affect. Results - Labs CBC & Chem 7: 01/25/18 05:55 01/25/18 05:55 Laboratory Results - last 24 hr 01/25/18 01/25/18 05:55 05:55 WBC 12.9 H RBC 3.52 L Hgb 10.3 L Hct 31.1 L MCV 88.2 MCH 29.3 MCHC 33.2 RDW 13.9 Plt Count 280 MPV 7.8 Neut % (Auto) 81.1 H Lymph % (Auto) 12.2 [place] % (Auto) 6.5 Eos % (Auto) 0.0 Baso % (Auto) 0.2 Neut # (Auto) 10.5 H Lymph # (Auto) 1.6 [place] # (Auto) 0.8 Eos # (Auto) 0.0 Baso # (Auto) 0.0 WBC Differential . Differential Comment Auto diff final Sodium 143 Potassium 4.2 Chloride 109 H Carbon Dioxide 26.1 Anion Gap 8 BUN 13 Creatinine 0.66 Estimated GFR 88 L Random Glucose 111 H Calcium 7.9 L Total Bilirubin 0.2 AST 12 L ALT 18 Alkaline Phosphatase 76 Total Protein 5.7 L Albumin 2.6 L - Imaging Impressions Knee X-Ray 01/24/18 08:55 CONCLUSION: 1. Status post right total knee arthroplasty. 2. No acute fracture or dislocation. Assessment and Plan - Assessment (1) Status post total knee replacement, right Code(s): Z96.651 - Presence of right artificial knee joint Status: Acute - Plan 72-year-old female with history of GERD admitted secondary to elective right TKR. 1. S/P R TKR Admitted by ortho and cleared for discharge Postop management per orthopedic surgery Postop H&H acceptable 2. GERD Zantac as needed 3. Anxiety Mood is stable Not on any active treatment for this Being discharged today
== END 2018-01-25 11:52 | disposition home health service (06) ==
LOC: HSDC 07:03 → HSDI 08:55 → EDSTATUS 10:00 → N06 15:16
PROVIDERS: ADMIT Orthopaedic Surgery Sports Medicine; ATTEND Orthopaedic Surgery Sports Medicine